=== PATIENT | female | born 1970 | race Caucasian/White ===

== ENCOUNTER 2024-04-28 05:06 | Emergency (ER) | payer BC, SELFPAY ==
--- NOTE | 2024-04-28 05:00 | RT.EKG_ITS ---
APPROVED REPORT Exam: Resting ECG Reason for Exam: dizziness Patient Location: E HR:90 bpm ECG Measurements Heart Rate 90 AXIS UT 184 P 51 QRSd 87 QRS 58 QT 357 T 27 QTc 438 Conclusion Sinus rhythm...normal P axis, V-rate 60- [address] segment or T wave abnormalities to suggest occlusive OK
[2024-04-28 05:13] VITALS: BP 167/78; PULSE 68; RESP 14; TEMP 36.9; O2SAT 98
[2024-04-28 05:17] VITALS: RESP 14
[2024-04-28] MEDS: Meclizine 25 MG TAB PO (05:32)
--- NOTE | 2024-04-28 05:56 | ED.GENADUL_ITS ---
Discharge Plan Disposition Patient Disposition: Home Condition: Good Discharge Details Clinical Impression: Benign paroxysmal positional vertigo Primary Care Provider: Dave Clark ED Provider: Kristie Ron Home Meds and New Rx's Prescriptions: New meclizine 25 mg tablet 25 mg PO BID PRNQty: 30 0RF Continued dexlansoprazole [Dexilant] 30 mg capsule,biphase delayed releas 30 mg PO DAILY Discharge Instructions Instructions: Vestibular Exercises, Vertigo ED Additional Instructions: Meclizine up to twice a day as needed; follow the directions on the bottle. You can try the Beth manuever at home if your symptoms return Call your primary care doctor today to schedule an appointment within three days to follow up on your visit today. Return to the emergency department for new or worsening symptoms including persistent vertigo, inability to walk, or if you have any other concerns. Referrals: Dave Clark [Primary Care Provider] - [facility] General Mode of arrival: ambulatory . Date/Time Provider Initiated Documentation: 04/28/24 05:12 . Limitations to Documentation: no limitations . Information obtained by: patient . HPI Narrative: 53yo F with hx GERD, peripheral vertigo, presenting with vertigo. Woke this morning at around 430, initially symptom free, rolled over in bed and then had acute vertigo/room spinning/nausea. Symptoms isrrael when she lays still on her left side. Returns wtih head movement. Nausea, no vomiting. No ear pain or tinnnitus. No recent illness. Similar to prior episodes of vertigo, just worse. Her episodes usually improve somewhat with meclizine. Otherwise in her usual state of health with no fevers, chills, rash, abdominal pain, chest pain, shortness of breath, numbness, tingling, weakness, headache, presyncope, double vision, hearing changes, vision changes, or other concerns. Related Data Home Medications ?Medication ?Instructions ?Recorded ?Confirmed dexlansoprazole 30 mg 30 mg PO DAILY 04/28/24 04/28/24 capsule,biphase delayed release (Dexilant) meclizine 25 mg tablet 25 mg PO BID PRN #30 tabs 04/28/24 Previous Rx's ?Medication ?Instructions ?Recorded meclizine 25 mg tablet 25 mg PO BID PRN #30 tabs 04/28/24 Allergies Allergy/AdvReac Type Severity Reaction Status Date / Time oxymetazoline (From Afrin AdvReac Mild Agitation Verified 04/28/24 05:10 (oxymetazoline)) General Stated Complaint: Dizzy/Sync COBY: 3 Review of Systems Narrative: see HPI Exam Narrative Exam Narrative: General: Laying on her left side, eyes closed. Head: Normocephalic, atraumatic Neck: Trachea midline, ?Neck supple. ENT: ?MMM.? No oropharygeal lesions or exudate. Cardiac: ?RRR, no murmurs appreciated Resp: No respiratory distress. CTAB. Abd: ?Soft, non-distended, nontender Extremities: ?No deformities.? No peripheral edema. Neuro: ? GCS 15.? PERRL.? EOMI.? Fluent speech, no dysarthria. Motor- 5/5 strength symmetric bilateral upper and lower extremities Sensation- ?Intact to light touch and symmetric multiple dermatomes including upper and lower extremities Coordination- No dysmetria on finger to nose Gait/station: ?Normal stance.? No truncal ataxia. Steady gait with equal normal steps CRANIAL NERVES: II: Pupils equal and reactive, III, IV, : EOM intact, no gaze preference or deviation. V: normal sensation in V1, V2, and V3 segments bilaterally VII: no asymmetry, no nasolabial fold flattening VIII: normal hearing to speech IX, X: normal palatal elevation, no uvular deviation XI: 5/5 head turn and 5/5 shoulder shrug bilaterally XII: midline tongue protrusion Course Vital Signs Vital signs: Vital Signs Temperature 36.9 C 04/28/24 05:13 Pulse 68 04/28/24 05:13 Respiratory Rate 14 04/28/24 05:13 Blood Pressure 167/78 H 04/28/24 05:13 Pulse Oximetry 98 04/28/24 05:13 Temperature 36.9 C 04/28/24 05:13 Temperature Source Temporal Artery Scan 04/28/24 05:13 Pulse 68 04/28/24 05:13 Respiratory Rate 14 04/28/24 05:17 Respiratory Effort Normal 04/28/24 05:17 Respiratory Depth Normal 04/28/24 05:17 Respiratory Pattern Normal 04/28/24 05:17 Blood Pressure 167/78 H 04/28/24 05:13 Blood Pressure Position Supine 04/28/24 05:13 Pulse Oximetry 98 04/28/24 05:13 Oxygen Delivery Method Room Air 04/28/24 05:13 Oxygen Flow Rate 0 04/28/24 05:13 Pain Level 1 04/28/24 05:13 Comment Left ear pain 04/28/24 05:13 Medical Decision Making 53yo F with hx GERD, peripheral vertigo, presenting with vertigo. Woke this morning at around 430, initially symptom free, rolled over in bed and then had acute vertigo/room spinning/nausea. Stops with laying still on her left side, returns with head movement. Vital signs and physical exam reassuring on arrival. Demarco hallpike +. Consistent with BPPV; history & exam not suggestive of central cause, CVA/TIA, intracranial mass, menieres, etc. Would not get labs or CT/MRI imaging. Given meclizine. Performed beth and instructed patient and spouse in performance. Subsequently patient reports symptoms resolved. Ambulated and tolerated well. Advised to followup [facility] PCP regarding hypertension. Discharged home; discharge instructions and return precautions were reviewed with patient who verbalized understanding. All questions were answered and she is in full agreement with the plan. Quality:SDOH Health Related Social Needs: No Data to Display PFSH All Active Problems (Updated 04/28/24 @ 07:09 by Kristie Ron MD) Benign paroxysmal positional vertigo (Acute) Social History Smoking risk assessment performed?: No Substance use type: does not use
[2024-04-28] MEDS: LORazepam 0.5 MG TAB PO (05:57)
[2024-04-28 07:23] VITALS: BP 142/86; PULSE 83; RESP 16; O2SAT 96
--- NOTE | 2024-04-28 15:49 | NUR.NOTE ---
Nursing Note: Pt called requesting that the RX from this morning be sent to [facility] in [facility] instead of [facility]. I called [facility] in [facility] and the pharmacist informed me that she is able to pull the order back to their location and would do that immediately for me. Patient notified that the pharmacist is going to do this and can pharmacy picking technician her RX at [facility] in [facility] in a few hours.
== END 2024-04-28 07:26 | disposition home or self-care (01) ==
PROVIDERS: Emergency Provider Student in an Organized Health Care Education/Training Program; PCP Internal Medicine
DX: R11.2 Nausea with vomiting, unspecified (principal); R42 Dizziness and giddiness; H81.10 Benign paroxysmal vertigo, unspecified ear
CPT/HCPCS: 36415; 93005; 99283; 93010